=== PATIENT | male | born 1965 | race Caucasian/White ===

== ENCOUNTER 2020-10-03 17:59 | Emergency (ER) | payer BC ==
[~2020-10-03] VITALS: Ht 198.1 cm; Wt 97.1 kg
[2020-10-03] MEDS ORDERED: ONDANSETRON HCL/PF 4 MG/2 ML VIAL ONE (18:27)
[2020-10-03] MEDS ORDERED: IV NS 0.9% 1,000 ML BAG IV ONE (18:30)
[2020-10-03] MEDS ORDERED: ONDANSETRON HCL/PF 4 MG/2 ML VIAL IVP ONE (18:30)
--- NOTE | 2020-10-03 18:32 | NUR ---
Patient came in to the er c/o bilateral flank pain x 3 weeks, 10/10 pain scale, +nausea vomiting, Hx kidney stone. On room air, breathing evenly and unlabored. connected to the monitor and pulse ox. kept comfortable, will continue to monitor accordingly.
--- NOTE | 2020-10-03 18:32 | NUR ---
Nancy ZAMORA at bedside for eval
[2020-10-03 18:46] LABS: BASOPHILS # (AUTO) 0.1 /CMM (0.0-0.2); BASOPHILS % (AUTO) 0.9 % (0.0-2.0); HEMATOCRIT 42 % (39-51); HEMOGLOBIN 14.4 g/dL (13.5-17.5); LYMPHOCYTES # (AUTO) 1.8 /CMM (0.8-4.8); LYMPHOCYTES % (AUTO) 21.9 % (20.0-44.0); MEAN CORPUSCULAR HGB CONC 34 g/dl (31.0-36.0); MEAN CORPUSCULAR VOLUME 87 fL (80-96); MONOCYTES # (AUTO) 0.6 /CMM (0.1-1.30); MONOCYTES % (AUTO) 7.5 % (2.0-12.0); NEUTROPHILS # (AUTO) 5.6 /CMM (1.8-8.9); NEUTROPHILS % (AUTO) 67.7 % (43.0-81.0); PLATELET COUNT (AUTO) 461 /CMM (150-450); RED BLOOD CELL COUNT(AUTO) 4.84 MIL/uL (4.5-6.0); WHITE BLOOD COUNT (AUTO) 8.3 K/uL (4.3-11.0)
[2020-10-03] MEDS ORDERED: HYDROMORPHONE 1 MG/1 ML DISP.SYRIN IV ONE (19:00)
[2020-10-03 19:02] LABS: CALCIUM, SERUM 9.2 mg/dL (8.5-10.1); CREATININE 0.9 mg/dL (0.6-1.3); POTASSIUM 3.3 mmol/L (3.5-5.1)
[2020-10-03 19:05] LABS: COLOR,URINE RED (YELLOW)
[2020-10-03 19:08] LABS: RBC,URINE TOO NUMEROUS TO COUN /HPF (0-2)
[2020-10-03 19:09] LABS: BACTERIA,URINE 1+ /HPF (None Seen); SQUAMOUS EPITHELIAL CELL,UR 0-2 /HPF (None Seen)
[2020-10-03 19:12] LABS: ALBUMIN 3.9 g/dL (3.4-5.0); BILIRUBIN,DIRECT 0.1 mg/dL (0.0-0.2); BILIRUBIN,TOTAL 0.5 mg/dL (0.2-1.0); TOTAL PROTEIN, SERUM 7.3 g/dL (6.4-8.2)
[2020-10-03] MEDS ORDERED: HYDROMORPHONE 1 MG/1 ML DISP.SYRIN ONE (19:18)
[2020-10-03] MEDS ORDERED: POTASSIUM CHLORIDE 20 MEQ TAB.PRT.SR PO ONE ×2 (19:18→19:30)
--- NOTE | 2020-10-03 19:25 | NUR ---
PATIENT TAKEN FOR CT. LEFT ER IN STABLE CONDITION.
--- NOTE | 2020-10-03 19:34 | NUR ---
THE PATIENT BACK FROM CT.
--- NOTE | 2020-10-03 20:47 | NUR ---
CORTNEY, FATHER, , CALLED FOR UPDATE. WANTS NURSE TO CALL FOR UPDATE
[2020-10-03] MEDS ORDERED: CEFTRIAXONE 1GM BAG (ER ONLY) 1 GM/50 ML PIGGYBACK IV ONE (21:00)
[2020-10-03] MEDS ORDERED: CEFTRIAXONE 1GM BAG (ER ONLY) 50 ML IV ONE (21:26)
[2020-10-03] MEDS ORDERED: CEPH500C2 PO (21:30)
[2020-10-03] MEDS ORDERED: ONDA4TAB5 PO (21:30)
[2020-10-03] MEDS ORDERED: HYDR-4303 PO (21:30)
--- NOTE | 2020-10-03 21:54 | NUR ---
The patient alert and oriented x4. Denies pain. In room air and denies SOB. Respiration regular and unlabored. Patient discharged to home in stable condition. Written and verbal after care instructions given. Patient verbalizes understanding of instruction.
[2020-10-03 21:55] VITALS: BP 135/85
== END 2020-10-03 21:55 | disposition home or self-care (01) ==
LOC: ER 18:11
DX: N13.2 Hydronephrosis with renal and ureteral calculous obstruction (principal); R31.0 Gross hematuria; Z79.899 Other long term (current) drug therapy
CPT/HCPCS: 36415; 74176; 76770; 80048; 80076; 81001; 83605; 83690; 85025; 87040 ×2; 87086; 96361; 96365; 96375; 99285; J0696; J1170; J2405; J7030